=== PATIENT | male | born 1995 | race Caucasian/White ===

== ENCOUNTER 2019-04-13 11:00 | Emergency (ER) | payer MEDICAID ==
[~2019-04-13] VITALS: Ht 167.6 cm; Wt 72.8 kg
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
[2019-04-13] MEDS ORDERED: CLON0.1T22 PO (12:15)
[2019-04-13] MEDS ORDERED: QUET400T4 PO (12:15)
[2019-04-13] MEDS ORDERED: SERT50TA PO (12:15)
[2019-04-13] MEDS ORDERED: LORA-445 PO (12:15)
[2019-04-13] MEDS ORDERED: DIAZEPAM 5 MG TABLET ONE (12:29)
[2019-04-13] MEDS ORDERED: DIAZEPAM 5 MG TABLET PO ONE (12:30)
--- NOTE | 2019-04-13 13:24 | NUR ---
PT SUICIDE SCREEN +, DR BARNEY AWARE AND TELE PSYCH EVAL ORDERED. PT TOLD THIS RN THAT HE WAS D/C FROM [facility] 2 WEEKS AGO AFTER SPENDING 3 WKS THERE 2/2 A SI ATTEMPT BY OVERDOSING. PT BECOMES TEARFUL WHEN TALKING ABOUT HIS FEELINGS OF SI AND STATES TO THIS RN "I FEEL VERY SUICIDAL RIGHT NOW" SBAR RPT TO QI ALANIS. PT TO BE MOVED TO ROOM 40 WITH SITTER AT DOORWAY WITH PT IN VIEW.
[2019-04-13 13:30] VITALS: BP 129/85
--- NOTE | 2019-04-13 13:45 | NUR ---
Report received from QI Nicholson, per QI Nicholson, pt is now stating he is suicidal. Patient's belongings (including cell phone) taken, bagged, labeled and placed in locked cabinet. Pt moved to secure room. Upon room change, pt states "I want to sign out AMA." When this RN asked patient if he is suicidal, pt states "Do I get to leave if I'm not suicidal? I'm not suicidal. I'm just coming down off of meth." LÁZARO Diaz notified. placed patient on legal hold. Patient informed of plan of care, labwork to be medically cleared, to be held for safety and to be evaluated by telepsyc. Patient threatening to elope. apparatus operator informed, informed, security informed.
--- NOTE | 2019-04-13 13:59 | NUR ---
Pt refusing labs, discussion surrounding process of care in ED and limitations to tele psych without medical clearance. Pt agrees to lab draw.
[2019-04-13 14:14] LABS: BASOPHILS # (AUTO) 0.06 x10^3/uL (0-0.1); BASOPHILS % (AUTO) 1 % (0-1); EOSINOPHILS # (AUTO) 0.04 x10^3/uL (0-0.4); EOSINOPHILS % (AUTO) 0 % (1-7); LYMPHOCYTES % (AUTO) 24 % (22-44); MD NO; MEAN CORPUSCULAR HEMOGLOBIN 29.2 pg (27.5-34.5); MEAN CORPUSCULAR HGB CONC 33.4 g/dL (33.2-36.2); MEAN CORPUSCULAR VOLUME 87.5 fL (81-97); MEAN PLATELET VOLUME 7.6 fL (7.4-10.4); MONOCYTES # (AUTO) 0.76 x10^3/uL (0.2-0.8); MONOCYTES % (AUTO) 9 % (2-9); NEUTROPHILS # (AUTO) 5.94 x10^3/uL (1.8-6.8); NEUTROPHILS % (AUTO) 67 % (42-75); PLATELET COUNT 276 x10^3/uL (130-400); RED BLOOD COUNT 5.38 x10^6/uL (4.38-5.82); RED CELL DISTRIBUTION WIDTH 13.3 % (9.4-14.8)
[2019-04-13] MEDS ORDERED: ZIPRASIDONE 20 MG INJ IM ONE ×2 (14:22→14:30)
--- NOTE | 2019-04-13 14:29 | NUR ---
pt continues to threaten to elope, EDMD Diaz notified. Order received for geodon 10mg IM once. Report given to RN Serafin who is to assume care at this time.
[2019-04-13 14:30] LABS: ALBUMIN 4.9 g/dL (3.4-5.0); ANION GAP 13 mmol/L (5-15); CALCIUM 9.9 mg/dL (8.5-10.1); CHLORIDE 102 mmol/L (98-107); SALICYLATE LEVEL 2.8 mg/dL (2.8-20.0)
[2019-04-13 14:32] LABS: ALANINE AMINOTRANSFERASE 44 U/L (12-78); ALKALINE PHOSPHATASE 110 U/L (45-117); BILIRUBIN,TOTAL 1.1 mg/dL (0.2-1.0); CREATININE 1.08 mg/dL (0.7-1.3); TOTAL PROTEIN 8.4 g/dL (6.4-8.2)
--- NOTE | 2019-04-13 14:35 | NUR ---
REPORT OF PT FROM QI ALANIS AND ASSUMING CARE OF PT AT THIS TIME. PT MEDICATED PER MAR FOR AGITATION WITH SECURITY AT BS. PT COOPERATIVE AND SITTING IN GURNEY AT THIS TIME. MEAL TRAY PROVIDED. PT DENIES ANY OTHER NEEDS AT THIS TIME. SITTER OUTSIDE OF ROOM FOR DIRECT OBSERVATION OF PT.
--- NOTE | 2019-04-13 15:44 | NUR ---
PT ASLEEP IN [facility] AT THIS TIME WITH SITTER OUTSIDE OF ROOM FOR DIRECT OBSERVATION OF PT.
--- NOTE | 2019-04-13 16:48 | NUR ---
[facility].
--- NOTE | 2019-04-13 17:50 | NUR ---
pt in [facility] with hali. pt has sitter outside of room for direct observation of pt at this time.
--- NOTE | 2019-04-13 18:36 | NUR ---
Patient decertified from a mental health hold. Patient discharge instructions given. All questions and concerns addressed. Patient ambulatory with a steady gait. Belongings retried from locked cabinet; patient verified he had all of his belongings including cell phone.
== END 2019-04-13 18:40 | disposition home or self-care (01) ==
LOC: ED 13:09
DX: T74.21XA Adult sexual abuse, confirmed, initial encounter (principal); K62.5 Hemorrhage of anus and rectum; F15.20 Other stimulant dependence, uncomplicated; F17.200 Nicotine dependence, unspecified, uncomplicated; Z72.89 Other problems related to lifestyle; Y04.8XXA Assault by other bodily force, initial encounter; Y92.098 Other place in other non-institutional residence as the place of occurrence of the external cause
CPT/HCPCS: 36415; 80053; 80307; 82140; 85025; 93005; 96372; 99284; J3486

== ENCOUNTER 2019-06-24 23:59 | Emergency (ER) | payer MEDICAID ==
[~2019-06-24] VITALS: Ht 167.6 cm; Wt 79.4 kg
[~2019-06-24 23:59] MED LIST: CLON0.1T22 PO; LORA-445 PO; QUET400T4 PO; SERT50TA PO
--- NOTE | 2019-06-25 00:23 | NUR ---
Pt in pita, asked for something to help him sleep. Awaiting ERP eval.
--- NOTE | 2019-06-25 00:31 | NUR ---
Placed quality assurance monitor body on pt, lab at bedside for draw.
[2019-06-25 00:44] LABS: BASOPHILS # (AUTO) 0.07 x10^3/uL (0-0.1); BASOPHILS % (AUTO) 1 % (0-1); EOSINOPHILS # (AUTO) 0.18 x10^3/uL (0-0.4); EOSINOPHILS % (AUTO) 2 % (1-7); LYMPHOCYTES % (AUTO) 19 % (22-44); MD NO; MEAN CORPUSCULAR HGB CONC 33.3 g/dL (33.2-36.2); MEAN CORPUSCULAR VOLUME 87.1 fL (81-97); MEAN PLATELET VOLUME 7.5 fL (7.4-10.4); MONOCYTES # (AUTO) 0.89 x10^3/uL (0.2-0.8); MONOCYTES % (AUTO) 9 % (2-9); NEUTROPHILS # (AUTO) 7.37 x10^3/uL (1.8-6.8); NEUTROPHILS % (AUTO) 70 % (42-75); PLATELET COUNT 253 x10^3/uL (130-400); RED BLOOD COUNT 5.37 x10^6/uL (4.38-5.82); RED CELL DISTRIBUTION WIDTH 14.9 % (9.4-14.8)
[2019-06-25 00:52] LABS: ALANINE AMINOTRANSFERASE 37 U/L (12-78); ALBUMIN 4.3 g/dL (3.4-5.0); ANION GAP 9 mmol/L (5-15); CALCIUM 9.5 mg/dL (8.5-10.1); CHLORIDE 101 mmol/L (98-107)
[2019-06-25 00:54] LABS: ALKALINE PHOSPHATASE 84 U/L (45-117); BILIRUBIN,TOTAL 0.9 mg/dL (0.2-1.0); CREATININE 1.45 mg/dL (0.7-1.3); TOTAL PROTEIN 8.1 g/dL (6.4-8.2)
[2019-06-25 01:00] LABS: SALICYLATE LEVEL < 1.7 mg/dL (2.8-20.0)
[2019-06-25] MEDS ORDERED: DIVA-61 PO (01:09)
[2019-06-25] MEDS ORDERED: QUET300T5 PO (01:09)
--- NOTE | 2019-06-25 01:18 | NUR ---
provided pt with pillow and blanket. pt resting calmly, denies needs, respirations even and unlabored, monitors in place, sitter at doorway for continous monitoring
--- NOTE | 2019-06-25 01:44 | NUR ---
urine sample taken to lab
[2019-06-25 02:12] LABS: AMPHETAMINE SCREEN, URINE Positive (Negative); BARBITURATE SCREEN, URINE Negative (Negative); BENZODIAZEPINE SCREEN, URINE Negative (Negative); CANNABINOID SCREEN, URINE Negative (Negative); COCAINE SCREEN, URINE Negative (Negative); METHADONE SCREEN, URINE Negative (Negative); OPIATE SCREEN, URINE Negative (Negative)
--- NOTE | 2019-06-25 02:36 | NUR ---
Vitals updated, pt easily aroused in no acute distress. Addendum: 06/25/19 at 0503 by SARA sitter at bedside for continous monitoring
--- NOTE | 2019-06-25 03:42 | NUR ---
Pt sleeping, continous vitals signs monitoring, sitter at bedside.
[2019-06-25] MEDS ORDERED: SODIUM CHLORIDE 0.9% 1,000ML IVBOLUS ONE (04:00)
--- NOTE | 2019-06-25 04:00 | NUR ---
Updated ERP on BP 88/51, per MD start IV and give 1L bolus.
--- NOTE | 2019-06-25 04:42 | NUR ---
Provided hospital bed to pt.
--- NOTE | 2019-06-25 04:42 | NUR ---
pt resting calmy, nad, sitter at bedside for continous monitoring
[2019-06-25 06:22] VITALS: BP 115/66
--- NOTE | 2019-06-25 06:22 | NUR ---
pt ambulated in [place] with this rn, rechecked b/p per errp [id number]/
--- NOTE | 2019-06-25 06:53 | NUR ---
Report given to Floridalma BUSBY.
--- NOTE | 2019-06-25 06:56 | NUR ---
Assumed care of pt at 0645. Report received from QI Garg. Pt is sleeping in bed. Sittter at doorway.
--- NOTE | 2019-06-25 08:00 | NUR ---
Pt asleep in bed. Respirations are even and unlabored. Sitter at doorway.
--- NOTE | 2019-06-25 09:03 | NUR ---
Pt still sleeping. Breathing even and unlabored. Breakfast tray remains untouched despite PSA attempt to get pt to eat a little. Sitter at doorway.
--- NOTE | 2019-06-25 10:06 | NUR ---
Pt sleeping comfortably. Sitter by doorway, Q15 min checks in place.
--- NOTE | 2019-06-25 10:40 | NUR ---
RN spoke with RN in 3E to let them know pt will be on his way soon. Report given earlier. Pt is also aware that he is on L2K and going to [facility]. Ate part of his breakfast.
--- NOTE | 2019-06-25 10:48 | NUR ---
Pt was taken to [facility] via wheelchair with his belongings.
[2019-06-25] MEDS ORDERED: DOXE25CA PO (11:42)
[2019-06-25] MEDS ORDERED: PROP10TA51 PO (11:42)
== END 2019-06-25 10:53 ==
LOC: ED 06-25 00:28
DX: R45.851 Suicidal ideations (principal); F32.9 Major depressive disorder, single episode, unspecified; F15.10 Other stimulant abuse, uncomplicated; F11.10 Opioid abuse, uncomplicated; R00.0 Tachycardia, unspecified; I95.9 Hypotension, unspecified
CPT/HCPCS: 36415; 80053; 80307; 85025; 93005; 96360; 99285; J7030

== ENCOUNTER 2019-06-25 09:28 | Inpatient (IN) | payer MEDICAID ==
[~2019-06-25] VITALS: Ht 167.6 cm; Wt 80.9 kg
[~2019-06-25 09:28] MED LIST changes: +DIVA-61 PO; +QUET300T5 PO
[2019-06-25] MEDS ORDERED: DOCUSATE 100 MG CAPSULE PO PRN (10:00)
[2019-06-25] MEDS ORDERED: BISACODYL 10 MG SUPP PR PRN (10:00)
[2019-06-25] MEDS ORDERED: POLYETHYLENE GLYCOL 17 GM PACKET PO PRN (10:00)
[2019-06-25] MEDS ORDERED: ONDANSETRON ODT 4 MG PO PRN (10:00)
[2019-06-25] MEDS ORDERED: DOXE25CA PO (11:42)
[2019-06-25] MEDS ORDERED: PROP10TA51 PO (11:42)
[2019-06-25 12:04] VITALS: BP 117/76
[2019-06-25 14:34] LABS: CHOL/HDL RATIO 3.6; FREE T4 (FREE THYROXINE) 1.22 ng/dL (0.76-1.46); LDL/HDL RATIO 2.2 (0.5-3.0)
[2019-06-25] MEDS: SERTRALINE 50MG TABLET PO SCH (16:51)
[2019-06-25] MEDS: ACAMPROSATE 333 MG TABLET.DR PO SCH ×2 (16:51→22:24)
[2019-06-25 19:52] VITALS: BP 100/66
[2019-06-25] MEDS: HYDROXYZINE PAMOATE 50MG CAP PO PRN (20:17)
[2019-06-25] MEDS: ACETAMINOPHEN 325 MG TABLET PO PRN (20:17)
[2019-06-25] MEDS: QUETIAPINE 100MG TABLET PO SCH (20:17)
[2019-06-25] MEDS ORDERED: QUETIAPINE 100MG TABLET PO ONE (23:00)
[2019-06-26 06:53] VITALS: BP 95/56
[2019-06-26 07:20] LABS: ALANINE AMINOTRANSFERASE 38 U/L (12-78); ALBUMIN 3.6 g/dL (3.4-5.0); ANION GAP 8 mmol/L (5-15); CALCIUM 8.6 mg/dL (8.5-10.1); CHLORIDE 105 mmol/L (98-107)
[2019-06-26 07:31] LABS: ALKALINE PHOSPHATASE 76 U/L (45-117); BILIRUBIN,TOTAL 0.7 mg/dL (0.2-1.0); TOTAL PROTEIN 6.9 g/dL (6.4-8.2)
[2019-06-26] MEDS: SERTRALINE 50MG TABLET PO SCH (08:38)
[2019-06-26] MEDS: ACAMPROSATE 333 MG TABLET.DR PO SCH ×3 (08:38→20:59)
[2019-06-26] MEDS: NICOTINE 21 MG/24 HR PATCH.TD24 TD SCH (08:39)
[2019-06-26] MEDS: HYDROXYZINE PAMOATE 50MG CAP PO PRN (15:09)
[2019-06-26 19:29] VITALS: BP 109/67
[2019-06-26] MEDS: QUETIAPINE 100MG TABLET PO SCH (20:59)
[2019-06-26] MEDS: ACETAMINOPHEN 325 MG TABLET PO PRN (21:01)
[2019-06-27 07:56] VITALS: BP 103/65
[2019-06-27] MEDS: ACAMPROSATE 333 MG TABLET.DR PO SCH ×3 (09:12→20:53)
[2019-06-27] MEDS: NICOTINE 21 MG/24 HR PATCH.TD24 TD SCH (09:12)
[2019-06-27] MEDS: SERTRALINE 50MG TABLET PO SCH (09:12)
[2019-06-27] MEDS: HYDROXYZINE PAMOATE 50MG CAP PO PRN (09:12)
[2019-06-27 15:24] LABS: MICROSCOPIC NOT IND
[2019-06-27 15:34] LABS: CULTURE INDICATED? NO
[2019-06-27 19:30] VITALS: BP 112/77
[2019-06-27] MEDS: QUETIAPINE 100MG TABLET PO SCH (20:53)
[2019-06-28 07:06] VITALS: BP 108/70
[2019-06-28] MEDS: SERTRALINE 50MG TABLET PO SCH (08:40)
[2019-06-28] MEDS: ACAMPROSATE 333 MG TABLET.DR PO SCH ×3 (08:40→20:30)
[2019-06-28] MEDS: NICOTINE 21 MG/24 HR PATCH.TD24 TD SCH (08:43)
[2019-06-28 20:18] VITALS: BP 131/78
[2019-06-28] MEDS ORDERED: HYDROXYZINE PAMOATE 25MG CAP ONE (20:28)
[2019-06-28] MEDS: QUETIAPINE 100MG TABLET PO SCH (20:30)
[2019-06-28] MEDS: HYDROXYZINE PAMOATE 50MG CAP PO PRN (20:31)
[2019-06-29 07:27] VITALS: BP 99/63
[2019-06-29] MEDS: ACAMPROSATE 333 MG TABLET.DR PO SCH ×3 (08:09→20:01)
[2019-06-29] MEDS: SERTRALINE 50MG TABLET PO SCH (08:09)
[2019-06-29] MEDS: NICOTINE 21 MG/24 HR PATCH.TD24 TD SCH (08:09)
[2019-06-29] MEDS: HYDROXYZINE PAMOATE 50MG CAP PO PRN (15:16)
[2019-06-29] MEDS ORDERED: QUET100T PO (15:24)
[2019-06-29] MEDS ORDERED: SERT50TA28 PO (15:24)
[2019-06-29] MEDS ORDERED: NICO-487 TD (15:24)
[2019-06-29] MEDS ORDERED: CLON0.1T22 PO (15:24)
[2019-06-29 19:00] VITALS: BP 117/71
[2019-06-29] MEDS: QUETIAPINE 100MG TABLET PO SCH (20:01)
[2019-06-30 07:27] VITALS: BP 109/71
[2019-06-30] MEDS ORDERED: HYDROXYZINE PAMOATE 25MG CAP ONE (08:26)
[2019-06-30] MEDS: SERTRALINE 50MG TABLET PO SCH (08:27)
[2019-06-30] MEDS: ACAMPROSATE 333 MG TABLET.DR PO SCH (08:27)
[2019-06-30] MEDS: NICOTINE 21 MG/24 HR PATCH.TD24 TD SCH (08:27)
[2019-06-30] MEDS: HYDROXYZINE PAMOATE 50MG CAP PO PRN (08:28)
== END 2019-06-30 10:05 | disposition home or self-care (01) | DRG 885 ==
LOC: 3E 11:03
PROVIDERS: ADMIT Psychiatry & Neurology Psychosomatic Medicine; ATTEND Psychiatry & Neurology Psychosomatic Medicine
DX: F33.2 Major depressive disorder, recurrent severe without psychotic features (principal); N17.0 Acute kidney failure with tubular necrosis; F11.20 Opioid dependence, uncomplicated; T43.592A Poisoning by other antipsychotics and neuroleptics, intentional self-harm, initial encounter; F15.90 Other stimulant use, unspecified, uncomplicated; F29 Unspecified psychosis not due to a substance or known physiological condition; F90.9 Attention-deficit hyperactivity disorder, unspecified type; G47.00 Insomnia, unspecified; Y92.89 Other specified places as the place of occurrence of the external cause; Z79.899 Other long term (current) drug therapy; Z81.8 Family history of other mental and behavioral disorders; Z91.5 Personal history of self-harm
CPT/HCPCS: 36415; 80053; 80061; 81003; 84439; 84443; 93005